=== PATIENT | female | born 1945 | race Caucasian/White ===

== ENCOUNTER 2018-02-25 05:45 | Day surgery (SDC) | payer MEDICARE, OTHER, SELFPAY ==
[2018-02-25] VITALS (13 sets, daily range): BP systolic 84–149; BP diastolic 49–84; PULSE 50–75; RESP 16–18; TEMP 36.2–37; O2SAT 94–98
--- NOTE | 2018-02-25 06:07 | PCM.HP.STD ---
Problem List (1) Screening for intestinal cancer Status: Acute History of Present Illness Date of Admission: 02/25/18 The patient is a 72 year old F who presents for screening colonoscopy. She happens to bring the light though that she has been having some lower abdominal pain particularly post defecation. No fever or chills or sweats. No bright red blood per rectum or melena. She states that she has no personal history of colon polyps or colon cancer. In the discussion however it became evident that she does have a brother who had a history of colon cancer. Her most recent colonoscopy was 10-1/2 years ago. She has not had any unexpected weight loss. She denies any recent hospitalizations or acute medical illnesses. Past Medical History Allergies celecoxib [From Celebrex] Allergy (Verified 02/22/18 10:51) Rash Home Medications: Ambulatory Orders Medication Instructions Recorded Aspirin E.C. [Ecotrin] 81 mg PO DAILY@0800 02/22/18 Cholecalciferol (Vitamin D3) 5,000 unit PO DAILY 02/22/18 [Vitamin D3] L.acidoph,Paracasei, B.lactis 1 each PO DAILY 02/22/18 [Probiotic] Metoprolol Tartrate [Lopressor 25 mg PO BID 02/22/18 (Beta Rupinder)] Multivit with Calcium,Iron,Min 1 each PO DAILY 02/22/18 [Multiple Vitamins For Women] Simvastatin [Zocor] 40 mg PO QHS 02/22/18 Vitamin E 400 unit PO DAILY 02/22/18 Smoking Status: Never smoker Tobacco Use: Non-smoker Review of Systems Constitutional: Denies: Anorexia Eyes: Denies: Blurred vision HEENT: Denies: Difficulty Hearing Cardiovascular: Denies: Chest Pain Respiratory: Denies: Cough Gastrointestinal: Reports: Abdominal Pain Genitourinary: Denies: Dysuria Neurological: Denies: Balance problems Psychiatric: Denies: Anxiety Endocrine: Denies: Change in Body Habitus Hematologic/ Lymphatic: Denies: Adenopathy VTE Information - Inpt Only VTE Present on Admission: No Patient Problems: Active and Suspected Problems Screening for intestinal cancer (Acute) - Physical Exam General: Alert, Oriented x3, Cooperative, No apparent distress HEENT: Atraumatic Oral: Moist Mucosa Neck: Supple, No JVD Lungs: Clear to auscultation Cardiovascular: Regular rate, Regular Rhythm Abdomen: Bowel Sounds Present, Soft, Non Tender Extremities: No clubbing Skin: No rashes Musculoskeletal: No Tenderness to Palpation of Joints or Extremities Lymphatic: No Cervical, Supraclavicular, or Inguinal Adenopathy Neurological: Cranial nerves II-XII grossly intact Psych/Mental Status: Normal Affect Assessment/Plan All Active Problems Screening for intestinal cancer (Acute) I am recommending the patient a colonoscopy with possible biopsy or polypectomy is indicated. She is aware of the technique, benefits, risks and alternatives. She does present via our open access program today. I have educated her that even if the screening colonoscopy is unremarkable that based upon her family history she should be having screening examinations every 5 years. She has had an opportunity to ask and have questions answered. We will proceed at her discretion. Primary care physician is Dr. Mansi Bradshaw M.D., F.A.C.S.
--- NOTE | 2018-02-25 06:53 | OP.ENDO_ITS ---
Patient Name: Marti Osorio Procedure Date: 02/25/2018 6:25 AM Date of : 1945 Age: 72 Procedure: Colonoscopy Indications: Screening for colorectal malignant neoplasm Providers: Abraham Bradshaw MD Medicines: Midazolam 3 mg IV, Meperidine 100 mg IV Patient Profile: Last Colonoscopy: 10 years ago. Complications: No immediate complications. Procedure: Pre-Anesthesia Assessment: - Prior to the procedure, a History and Physical was performed, and patient medications and allergies were reviewed. The patient's tolerance of previous anesthesia was also reviewed. The risks and benefits of the procedure and the sedation options and risks were discussed with the patient. All questions were answered, and informed consent was obtained. Prior Anticoagulants: The patient has taken aspirin, last dose was day of procedure. ASA Grade Assessment: II - A patient with mild systemic disease. After reviewing the risks and benefits, the patient was deemed in satisfactory condition to undergo the procedure. After I obtained informed consent, the scope was passed under direct vision. Throughout the procedure, the patient's blood pressure, pulse, and oxygen saturations were monitored continuously. The pediatric colonoscope was introduced through the anus and advanced to the cecum, identified by appendiceal orifice and ileocecal valve. The colonoscopy was performed without difficulty. The patient tolerated the procedure well. The quality of the bowel preparation was excellent. Moderate Sedation: Moderate (conscious) sedation was personally administered by the endoscopist. The following parameters were monitored: oxygen saturation, heart rate, blood pressure, and response to care. Total physician intraservice time was 15 minutes. Scope In: 6:31:48 AM Scope Withdrawal Time 0 hours 6 minutes 4 seconds Scope Out: 6:45:59 AM Total Procedure Duration Time 0 hours 14 minutes 11 seconds Findings: Hemorrhoids were found on perianal exam. Multiple diverticula were found in the sigmoid colon and descending colon. The exam was otherwise without abnormality. Impression: - Hemorrhoids found on perianal exam. - Diverticulosis in the sigmoid colon and in the descending colon. - The examination was otherwise normal. - No specimens collected. Recommendation: - Discharge patient to home. - Resume regular diet. - Continue present medications. - Repeat colonoscopy in 5 years for surveillance. Brother with colon cancer. Procedure Code(s): --- Professional --- 69399, Colonoscopy, flexible; diagnostic, including collection of specimen(s) by brushing or washing, when performed (separate procedure) 79349, 59, Moderate sedation services provided by the same physician or other qualified health geriatric care manager performing the diagnostic or therapeutic service that the sedation supports, requiring the presence of an independent trained observer to assist in the monitoring of the patient's level of consciousness and physiological status; initial 15 minutes of intraservice time, patient age 5 years or older Diagnosis Code(s): --- Professional --- Z12.11, Encounter for screening for malignant neoplasm of colon K64.9, Unspecified hemorrhoids K57.30, Diverticulosis of large intestine without perforation or abscess without bleeding CPT copyright 2017 [employer]. All rights reserved. The codes documented in this report are preliminary and upon biodiesel plant manager review may be revised to meet current compliance requirements. Abraham Bradshaw MD 02/25/2018 6:52:47 AM This report has been signed electronically. Number of Addenda: 0 Note Initiated On: 02/25/2018 6:25 AM
== END 2018-02-25 09:20 | disposition home or self-care (01) ==
LOC: EN 05:53 → AC 05:55
PROVIDERS: Family Provider Internal Medicine; PCP Internal Medicine; Visit Provider Surgery
PROC: 0DJD8ZZ Inspection of Lower Intestinal Tract, Via Natural or Artificial Opening Endoscopic (ICD-10-PCS; CPT 45378; principal; 2018-02-25 06:25)
DX: Z12.11 Encounter for screening for malignant neoplasm of colon (principal); K64.9 Unspecified hemorrhoids; K57.30 Diverticulosis of large intestine without perforation or abscess without bleeding; Z80.0 Family history of malignant neoplasm of digestive organs
CPT/HCPCS: G0121; 99152; 99153; J7120

== ENCOUNTER → 2018-10-20 | Outpatient (CLI) | payer MEDICARE, OTHER, SELFPAY ==
--- NOTE | 2018-10-20 11:28 | CT_ITS ---
STUDY: CT BRAIN WITHOUT CONTRAST REASON FOR EXAM: Female, 73 years old. Headaches following a recent fall. RADIATION DOSAGE (If Supplied By Facility): CTDIvol = ( 44.99 ) mGy, DLP = ( 812.98 ) mGycm TECHNIQUE: Transaxial CT imaging of the brain was performed without administration of intravenous contrast material. Individualized dose optimization techniques were used for this CT. COMPARISON: No relevant priors. FINDINGS: Normal soft tissue structures. Normal calvarium. Normal size ventricles and extra-axial spaces for the patient's age. Normal white matter tracts of the cerebral hemispheres. Normal basal ganglia and thalami. Normal brainstem. Normal cerebellum. There is no intracranial hemorrhage. There are no findings of an acute ischemic infarction. Normal visualized paranasal sinuses. CT/Brain/Head without Contrast IMPRESSION: Normal unenhanced CT scan of the brain. Electronically Signed: Charles Zhu, at 12:10 EDT , Service support ,
== END | disposition home or self-care (01) ==
PROVIDERS: Family Provider Internal Medicine; PCP Internal Medicine; Referring Provider Internal Medicine; Visit Provider Internal Medicine
DX: G44.319 Acute post-traumatic headache, not intractable (principal)
CPT/HCPCS: 70450

== ENCOUNTER 2023-03-19 06:22 | Day surgery (SDC) | payer MEDICARE, OTHER, SELFPAY ==
[2023-03-19] VITALS (12 sets, daily range): BP systolic 62–154; BP diastolic 41–118; PULSE 46–73; RESP 16–18; TEMP 36.3–36.6; O2SAT 84–100; BMI 34.3
--- NOTE | 2023-03-19 06:45 | PCM.HP.STD ---
[facility] - General General Date of Service: 03/19/23 Chief Complaint: Screening colonoscopy [facility] Narrative KATHERIN VIRK, is a 77 F who presents via open access today for screening colonoscopy. Her previous endoscopy was February 25, 2018 per myself and some diverticulosis and hemorrhoids were noted. She has a brother had colon cancer. The patient notes however that over the past couple months she has been having problems with intermittent bouts of very low abdominal pain and back pain post defecation. Couple scattered nights she had some sweats. She has not had this evaluated. No current fever or chilling. No bright red blood per rectum or melena. No history of DVT. [facility] Medical History (Updated 03/19/23 @ 06:[address] Abraham Bradshaw MD) Arthritis Cardiology follow-up encounter Cervical radiculopathy Dysplastic skin lesion Family hx of colon cancer Heart murmur History of diverticulitis History of stress test HTN (hypertension) Hypercholesterolemia Injury of head and neck Irritable bowel syndrome with diarrhea Non-smoker Wears glasses Home Medications L.acidoph, paracasei,B. lactis 10 billion cell capsule 1 ea PO DAILY 02/22/18 [History Last Taken Unknown] aspirin 81 mg tablet,delayed release 81 mg PO DAILY@0800 02/22/18 [History Last Taken 02/19/18] cholecalciferol (vitamin D3) 125 mcg (5,000 unit) capsule 5,000 unit PO DAILY 02/22/18 [History Last Taken Unknown] metoprolol tartrate 25 mg tablet 25 mg PO BID 02/22/18 [History Last Taken 03/19/23 04:00] luuwwejlkfft-Pv-jjrc-minerals (Multiple Vitamin, Womens tablet) 1 ea PO DAILY 02/22/18 [History Last Taken Unknown] simvastatin 40 mg tablet 40 mg PO QHS 02/22/18 [History Last Taken Unknown] omega 7-qcf-pzj-fish oil 300 mg-1,000 mg capsule (Fish Oil) 1 cap PO DAILY 01/12/23 [History Last Taken 03/11/23] ascorbic acid (vitamin C) 500 mg tablet,extended release (C Complex) 500 mg PO DAILY 03/16/23 [History Last Taken Unknown] diphenhydramine 25 mg-acetaminophen 500 mg tablet (Acetaminophen PM) 1 tab PO QHS PRN sleep 03/16/23 [History Last Taken Unknown] Allergy/AdvReac Type Severity Reaction Status Date / Time celecoxib [From Celebrex] Allergy Rash Verified 03/19/23 06:41 levocetirizine [From Xyzal] Allergy Off Balance Verified 03/19/23 06:41 Family History (Updated 01/12/23 @ 11:21 by Mahogany Lowry) Father Myocardial infarction Aunt Breast cancer Brother Colon cancer Surgical History (Updated 03/16/23 @ 11:26 by Andria Martin) History of total left knee replacement History of total right knee replacement (TKR) Hx of bilateral cataract extraction Hx of cholecystectomy Hx of colonoscopy Hx of varicose vein ligation and stripping Social History Smoking Status: Never smoker ROS Constitutional Constitutional: Reports systems reviewed and no addt'l complaints, except as documented Cardiovascular Cardiovascular: Denies chest pain Respiratory/Chest Respiratory/Chest: Denies shortness of breath at rest Gastrointestinal Gastrointestinal: Denies change in bowel habits, hematochezia or melena Physical Exam Const alert, oriented x3 and no apparent distress General Appearance: cooperative and comfortable Eyes General Eye: normal appearance of both eyes Neck General: normal visual inspection Chest inspection of chest normal Resp Effort and Inspection: able to speak in complete sentences and symmetric chest movement Auscultation: clear to auscultation bilaterally Cardio regular rate and regular rhythm GI soft to palpation, non-tender and non-distended Extremity no calf tenderness Neuro oriented x3 Psych thought process normal Assessment & Plan Assessment/Plan (1) Encounter for screening for malignant neoplasm of colon: (2) Family hx of colon cancer: PLAN: Plan Family history of colon cancer in her brother. Patient presents via open access today for screening colonoscopy. She does make comment that she has been having some post defecation low abdominal pain and back pain. She has a history very remotely of diverticulitis. She has known diverticulosis on previous examination. I discussed with her screening colonoscopy with possible biopsy or polypectomy if indicated. Careful inspection for acute inflammatory changes will be pursued. As noted the patient did present via open access. If she has ongoing pain issues then she will need to follow-up either with her primary care physician or myself subsequent to this screening. Abraham Bradshaw M.D., F.A.C.S.
[2023-03-19] MEDS: Lactated Ringers 1,000 ML 15 ML IV (06:49)
[2023-03-19] MEDS: Midazolam 5 MG/ML Syringe (07:25)
--- NOTE | 2023-03-19 07:43 | OP.CCLET_ITS ---
03/19/2023 Mansi Hyde [address] [place] [address] Re : Colonoscopy procedure for Marti Osorio Dear Dr. Hyde This procedure was performed on Sunday, March 19, 2023. My impressions and recommendations are as follows: Impressions : - Hemorrhoids found on perianal exam. - Diverticulosis in the sigmoid colon and in the descending colon. - The examination was otherwise normal. - No specimens collected. Recommendations : - Discharge patient to home. - Resume previous diet. - Continue present medications. - Repeat colonoscopy in 5 years for surveillance. My findings are described in the full procedure note, which is enclosed. If I can be of further assistance, please feel free to contact me at Doctor phone number(s): Work: . Sincerely, Abraham Bradshaw MD 03/19/2023 7:42:40 AM This report has been signed electronically.
--- NOTE | 2023-03-19 07:43 | OP.COLON_ITS ---
Patient Name: Marti Osorio Procedure Date: 03/19/2023 7:17 AM Date of : 1945 Age: 77 Procedure: Colonoscopy Indications: Family history of colon cancer in a first-degree relative before age 60 years Providers: Abraham Bradshaw MD Medicines: Midazolam 3 mg IV, Meperidine 100 mg IV Patient Profile: Last Colonoscopy: January 2018. Complications: No immediate complications. Procedure: Pre-Anesthesia Assessment: - Prior to the procedure, a History and Physical was performed, and patient medications and allergies were reviewed. The patient's tolerance of previous anesthesia was also reviewed. The risks and benefits of the procedure and the sedation options and risks were discussed with the patient. All questions were answered, and informed consent was obtained. Prior Anticoagulants: The patient has taken no anticoagulant or antiplatelet agents. ASA Grade Assessment: II - A patient with mild systemic disease. After reviewing the risks and benefits, the patient was deemed in satisfactory condition to undergo the procedure. After I obtained informed consent, the scope was passed under direct vision. Throughout the procedure, the patient's blood pressure, pulse, and oxygen saturations were monitored continuously. The colonoscope was introduced through the anus and advanced to the cecum, identified by appendiceal orifice and ileocecal valve. The colonoscopy was performed without difficulty. The patient tolerated the procedure well. The quality of the bowel preparation was excellent. The ileocecal valve and the appendiceal orifice were photographed. Moderate Sedation: Moderate (conscious) sedation was personally administered by the endoscopist. The following parameters were monitored: oxygen saturation, heart rate, blood pressure, and response to care. Total physician intraservice time was 15 minutes. Scope In: 7:25:39 AM Scope Withdrawal Time 0 hours 6 minutes 33 seconds Scope Out: 7:37:34 AM Total Procedure Duration Time 0 hours 11 minutes 55 seconds Findings: Hemorrhoids were found on perianal exam. Multiple diverticula were found in the sigmoid colon and descending colon. The exam was otherwise without abnormality. Impression: - Hemorrhoids found on perianal exam. - Diverticulosis in the sigmoid colon and in the descending colon. - The examination was otherwise normal. - No specimens collected. Recommendation: - Discharge patient to home. - Resume previous diet. - Continue present medications. - Repeat colonoscopy in 5 years for surveillance. Procedure Code(s): --- Professional --- 48748, Colonoscopy, flexible; diagnostic, including collection of specimen(s) by brushing or washing, when performed (separate procedure) 62171, 59, Moderate sedation services provided by the same physician or other qualified health family member caretaker performing the diagnostic or therapeutic service that the sedation supports, requiring the presence of an independent trained observer to assist in the monitoring of the patient's level of consciousness and physiological status; initial 15 minutes of intraservice time, patient age 5 years or older Diagnosis Code(s): --- Professional --- K64.9, Unspecified hemorrhoids Z80.0, Family history of malignant neoplasm of digestive organs K57.30, Diverticulosis of large intestine without perforation or abscess without bleeding CPT copyright 2021 [employer]. All rights reserved. The codes documented in this report are preliminary and upon brake specialist review may be revised to meet current compliance requirements. Abraham Bradshaw MD 03/19/2023 7:42:40 AM This report has been signed electronically. Number of Addenda: 0 Note Initiated On: 03/19/2023 7:17 AM
== END 2023-03-19 08:57 | disposition home or self-care (01) ==
LOC: EN 06:23 → AC 06:23
PROVIDERS: PCP Internal Medicine; Referring Provider Internal Medicine; Visit Provider Surgery
PROC: 0DJD8ZZ Inspection of Lower Intestinal Tract, Via Natural or Artificial Opening Endoscopic (ICD-10-PCS; CPT 45378; principal; 2023-03-19 07:25)
DX: Z12.11 Encounter for screening for malignant neoplasm of colon (principal); K64.9 Unspecified hemorrhoids; Z80.0 Family history of malignant neoplasm of digestive organs; K57.30 Diverticulosis of large intestine without perforation or abscess without bleeding; E78.00 Pure hypercholesterolemia, unspecified; I10 Essential (primary) hypertension; Z79.82 Long term (current) use of aspirin; Z79.899 Other long term (current) drug therapy
CPT/HCPCS: G0121; 99152; 99153; J7120

== ENCOUNTER → 2023-09-08 | Outpatient (CLI) | payer MEDICARE, OTHER, SELFPAY ==
--- NOTE | 2023-09-08 11:28 | CT_ITS ---
STUDY: CT ABDOMEN AND PELVIS WITH CONTRAST REASON FOR EXAM: Female, 78 years old. RLQ Abdominal pain RADIATION DOSAGE (If Supplied By Facility): CTDIvol = ( 16.28 ) mGy, DLP = ( 1204.75 ) mGycm TECHNIQUE: Transaxial images were obtained from the dome of the diaphragm to the symphysis pubis with oral contrast. Oral and amp; IV Gastrografin and amp; 100mL Isovue-300 was administered. Sagittal and coronal images were reconstructed. Individualized dose optimization techniques were used for this CT. COMPARISON: None. FINDINGS: Minimal increased linear markings at the right lung base suggest some mild atelectasis. Coronary artery calcification. There is decreased attenuation of the liver consistent with steatosis. There are surgical clips in the gallbladder fossa consistent with a prior cholecystectomy. Normal spleen. Normal pancreas. There is a small, circumscribed, smooth, low attenuation left adrenal mass, consistent with an adrenal adenoma. This measures 1.4 cm x 1.1 cm. Normal right adrenal gland. Bilateral parapelvic renal cysts. Normal visualized stomach. Normal small intestine. There are multiple colonic diverticula consistent with diverticulosis. The appendix is visualized and appears normal. There is scattered atherosclerotic calcification of the abdominal aorta, without a demonstrated aneurysm. Normal inferior vena cava. Normal retroperitoneum. Normal urinary bladder. There is a 2.7 cm x 3.1 cm cyst in the left adnexa. Correlation with pelvic sonogram is recommended. Normal abdominal wall. There are diffuse degenerative changes of the visualized lumbar spine. CT/Abdomen/Pelvis WITH Contrast IMPRESSION: Diffuse fatty infiltration of the liver. Status post cholecystectomy. Findings in keeping with a 1.4 cm x 1 cm left adrenal adenoma. 2.7 cm x 3.1 cm cyst in the left adnexa. Electronically Signed: Charles Zhu MD at 14:05 EDT ,
[2023-09-08 13:56] LABS: CREATININE FINGERSTICK < 1.0 mg/dL (0.55-1.02); EGFR FINGERSTICK > 60.0000 mL/min (>60)
== END | disposition home or self-care (01) ==
LOC: CT 11:26
PROVIDERS: PCP Internal Medicine; Referring Provider Internal Medicine; Visit Provider Internal Medicine
DX: R10.31 Right lower quadrant pain (principal)
CPT/HCPCS: 74177; Q9967

== ENCOUNTER → 2023-09-27 | Outpatient (CLI) | payer MEDICARE, OTHER, SELFPAY ==
--- NOTE | 2023-09-27 08:55 | US_ITS ---
STUDY: ULTRASOUND OF THE FEMALE PELVIS - COMPLETE REASON FOR EXAM: Female, [address] scan LMP: Patient is postmenopausal. TECHNIQUE: Transabdominal TECHNICAL QUALITY: Adequate. COMPARISON: Comparison is made with prior CT scan dated September 08, 2023. FINDINGS: The uterus is anteverted and is in a midline position. The uterus measures 7.8 cm x 4.9 cm x 3.2 cm. Normal uterine cervix. The endometrium is slightly thickened and measures 3.3 mm in thickness, and is hyperechoic. There is no demonstrated endometrial mass. There is no demonstrated myometrial mass. I.U.D. - The patient does not have an I.U.D. The right ovary is visualized. The right ovary measures 2.3 cm x 1.6 cm x 1.1 cm. There is no right ovarian cyst or ovarian mass. There is no visualized right adnexal mass or complex lesion. There is normal arterial and normal venous vascularity. The left ovary is visualized. The left ovary measures 4.6 cm x 3 cm x 3.7 cm. There is a 3.7 cm x 2.9 cm by 2.9 cm cyst in the left ovary. There is no visualized left adnexal mass or complex lesion. There is normal arterial and normal venous vascularity. There is no fluid in the cul-de-sac. The pre void volume of the bladder was 250 ml. US/Pelvic (Non ) IMPRESSION: Minimally thickened endometrium measuring 3.3 mm. 3.7 cm x 2.9 cm x 2.9 cm cyst in the left ovary. Electronically Signed: Charles Zhu MD at 14:05 EDT ,
== END | disposition home or self-care (01) ==
LOC: US 08:54
PROVIDERS: PCP Internal Medicine; Referring Provider Internal Medicine; Visit Provider Internal Medicine
DX: R93.89 Abnormal findings on diagnostic imaging of other specified body structures (principal)
CPT/HCPCS: 76856

== ENCOUNTER 2023-10-07 20:03 | Emergency (ER) | payer MEDICARE, OTHER, SELFPAY ==
[2023-10-07 20:05] VITALS: BP 212/94; PULSE 84; RESP 16; TEMP 36.9; O2SAT 98; BMI 35.5
--- NOTE | 2023-10-07 20:37 | CT_ITS ---
INDICATION: headache EXAMINATION: CT BRAIN - CT Head or Brain W/O Contrast Injection TECHNIQUE: Multiple axial images were obtained of the head without intravenous contrast. A radiation dose optimization technique was used for this scan. IV Contrast dosage and agent: None. Radiation Dose (provided by facility) CTDIvol (47.06 ) mGy, DLP ( 890.33) mGy-cm COMPARISON: No relevant prior examinations for comparison FINDINGS: HEMISPHERES: 1. The cerebral parenchyma, ventricular system, subarachnoid spaces have normal configuration and density. There is a normal gyral pattern. There is normal fisher/white differentiation. No midline shift.. 2. Mild chronic microvascular deep white matter changes. There are dilated perivascular spaces in the RIGHT sublenticular region. 3. No intraparenchymal mass, hemorrhage, or acute territorial infarct. CEREBELLUM - BRAINSTEM: The cerebellum, brainstem, basilar and suprasellar cisterns have normal appearance. No Chiari malformation. PITUITARY: Infundibulum and pituitary have normal configuration. Midline structures appear normal. CSF SPACES: Appropriate for age. No hydrocephalus. Basal cisterns are patent. VESSELS: 1. No significant vascular calcifications in the cavernous carotid vessels. 2. No hyperdense vascular signs noted.. ORBITS AND PARANASAL SINUSES: 1. Normal appearance of the bony orbits. Normal appearance of the globes and retrobulbar soft tissues.. 2. Paranasal sinuses are clear. BONY ELEMENTS: Bony elements of the cranial vault, facial skeleton and skull base have normal appearance. SCALP AND SOFT TISSUES: Normal appearance of the soft tissues of the scalp and the visualized face OTHER: None ASPECTS Score for Acute Strokes: 10 CT/Brain/Head without Contrast IMPRESSION: 1. Mild chronic microvascular deep white matter changes. 2. No intracranial mass, hemorrhage or acute territorial infarct. 3. No radiographically significant sinus disease.. Electronically Signed: Dionte Farrell MD at 22:09 EDT ,
--- NOTE | 2023-10-07 20:42 | CT_ITS ---
STUDY: CTA CHEST REASON FOR EXAM: Female, 78 years old. chest pain, hypertension RADIATION DOSAGE (If Supplied By Facility): CTDIvol = ( 11.37 ) mGy, DLP = ( 404.79 ) mGycm TECHNIQUE: The examination was performed with the intravenous administration of IV 100mL Isovue-370. Post-processing of the angiographic images was performed, with multiplanar reformation and 3D reconstruction. Individualized dose optimization techniques were used for this CT. COMPARISON: None. FINDINGS: Tubes and lines: 1. No life-support noted. CTA: PULMONARY ARTERIES: There is normal configuration and contrast opacification of pulmonary outflow tract, main pulmonary arteries, segmental and intersegmental pulmonary arteries bilaterally without evidence of intraluminal filling defects. AORTIC ARCH: The aortic arch and descending aorta have normal configuration. No evidence of dissection or aneurysmal dilatation. HEART: Cardiac contour is large. No evidence pericardial effusion. Only mild scattered coronary vascular calcifications noted. CT CHEST: LUNGS: [Diffuse interstitial prominence at the lung bases, superimposed hazy groundglass infiltrate bilaterally greater on the RIGHT than LEFT, no consolidation or effusion.. No mass. No consolidation. PLEURAL SPACES: Unremarkable, no effusion or pneumothorax.. MEDIASTINUM AND LYMPH NODES: Unremarkable. No significant adenopathy. BONES: No acute bony changes. Diffuse marginal osteophyte formation throughout the thoracic spine. ABDOMEN: Within normal limits. Other: None IMPRESSIONS: 1. No CTA evidence of pulmonary embolism. 2. No CTA evidence of aortic aneurysm or dissection 3. Cardiomegaly is noted. No pericardial effusion. Mild scattered coronary vascular calcifications are present. 4. Diffuse interstitial prominence at the lung bases with superimposed hazy groundglass infiltrate particularly at the RIGHT lung base. Electronically Signed: Dionte Farrell MD at 22:13 EDT , CT/CTA Chest W/WO Contrast IMPRESSION: undefined
[2023-10-07 20:55] VITALS: BP 162/84; PULSE 88; RESP 16; O2SAT 98
[2023-10-07 20:57] LABS: Bacteria 0 SEEN /hpf (None Seen); Mucous, Urine 0 SEEN /hpf (<or=2+); Red Blood Cells-Urine 0 SEEN /hpf (0-5)
[2023-10-07 20:59] LABS: Absolute Neutrophil Count 3.2 X10^3/uL (2.0-7.7); Basophil# 0.02 X10^3/uL; Basophil% 0.3 % (0-1); Eosinophil# 0.09 X10^3/uL; Eosinophils% 1.4 % (0-5); Hematocrit 45.9 % (37-47); Hemoglobin 14.9 g/dL (12.0-15.0); Lymphocyte % 38.5 % (19-41); Mean Corp Hgb Conc 32.5 g/dL (32-36); Mean Corpuscular Volume 89.3 fL (81-99); Mean Platelet Vol. 9.1 fl (6.2-12.0); Monocyte# 0.56 X10^3/uL; NRBC Flagged by Analyzer 0 % (0-5); Neutrophil # 3.16 X10^3/uL (2.7-7.7); Neutrophil % 50.6 % (47-70); Platelet Count 223 K/mm3 (150-450); RBC Distribution Width CV 13.1 % (11.6-14.6); RBC Distribution Width SD 42.8 fl (35.1-43.9); Red Blood Count 5.14 M/mm3 (4.2-5.4); White Blood Count 6.2 K/mm3 (4.4-11.0)
[2023-10-07 20:59] LABS: Color, Urine Yellow (Yellow); Glucose, Dipstick Normal (Normal); Ketone-Dipstick 15 mg/dl (Negative); Leukocyte Esterase-Dipstick Negative /ul (Negative); Nitrite-Dipstick Negative (Negative); Occult Blood-Urine 10 /ul (Negative); Protein-Dipstick 15 mg/dl (Negative); Urine Bilirubin Dipstick Negative (Negative); Urine Clarity Clear (Clear); Urine Urobilinogen Normal (Normal)
--- NOTE | 2023-10-07 21:00 | EDS_ITS ---
HPI <BIJAL Nash - Last Filed: 10/07/23 22:01> History of Present Illness Chief Complaint: Hypertension Narrative Narrative: Patient presenting today due to elevated blood pressure that started this morning. She reports that she came here to the hospital to have an echocardiogram performed due to her PCP finding a systolic murmur, her systolic blood pressure was high this morning around 200 systolic. She has intermittently checked her blood pressure today and it has remained high, it was around 224 systolic this evening. She reports that around 4 PM she developed sharp pain in her left arm and pain under her left breast into the left lateral rib cage. This morning she developed a slight headache that has gradually worsened throughout the day. She reports that she does take 25 mg metoprolol tartrate twice daily, she did not take her evening dose yet today. She denies any significant cardiac history. She reports that her blood pressure is normally in good control. She denies any history of blood clots/recent surgery/procedures/travel/immobilization. [facility] [place] <BIJAL Nash - Last Filed: 10/07/23 22:01> [facility] [place] Medical History Arthritis Cardiology follow-up encounter Cervical radiculopathy Dysplastic skin lesion Family hx of colon cancer Heart murmur History of diverticulitis History of stress test HTN (hypertension) Hypercholesterolemia Injury of head and neck Irritable bowel syndrome with diarrhea Non-smoker Wears glasses Home Medications L.acidoph, paracasei,B. lactis 10 billion cell capsule 1 ea PO DAILY 02/22/18 [History Last Taken Unknown] aspirin 81 mg tablet,delayed release 81 mg PO DAILY@0800 02/22/18 [History Last Taken 02/19/18] cholecalciferol (vitamin D3) 125 mcg (5,000 unit) capsule 5,000 unit PO DAILY 02/22/18 [History Last Taken Unknown] metoprolol tartrate 25 mg tablet 25 mg PO BID 02/22/18 [History Last Taken 03/19/23 04:00] kgabkkzpfesn-Rz-bcan-minerals (Multiple Vitamin, Womens tablet) 1 ea PO DAILY 02/22/18 [History Last Taken Unknown] simvastatin 40 mg tablet 40 mg PO QHS 02/22/18 [History Last Taken Unknown] omega 8-kra-jia-fish oil 300 mg-1,000 mg capsule (Fish Oil) 1 cap PO DAILY 01/12/23 [History Last Taken 03/11/23] ascorbic acid (vitamin C) 500 mg tablet,extended release (C Complex) 500 mg PO DAILY 03/16/23 [History Last Taken Unknown] diphenhydramine 25 mg-acetaminophen 500 mg tablet (Acetaminophen PM) 1 tab PO QHS PRN sleep 03/16/23 [History Last Taken Unknown] losartan 25 mg tablet 25 mg PO DAILY #30 tabs 10/07/23 [Rx Last Taken Unknown] Allergy/AdvReac Type Severity Reaction Status Date / Time celecoxib [From Celebrex] Allergy Rash Verified 10/07/23 20:07 levocetirizine [From Xyzal] Allergy Off Balance Verified 10/07/23 20:07 Family History Father Myocardial infarction Aunt Breast cancer Brother Colon cancer Surgical History History of total left knee replacement History of total right knee replacement (TKR) Hx of bilateral cataract extraction Hx of cholecystectomy Hx of colonoscopy Hx of varicose vein ligation and stripping Social History Smoking Status: Never smoker ROS <BIJAL Nash - Last Filed: 10/07/23 22:01> ROS ED Constitutional Constitutional ED: Denies chills or fever(s) Eyes Eyes: Denies change in vision Cardiovascular Cardiovascular: Reports chest pain; Denies palpitations Respiratory/Chest Respiratory/Chest: Denies cough or dyspnea Gastrointestinal Gastrointestinal: Denies abdominal pain, nausea or vomiting Genitourinary Genitourinary ED: Denies dysuria, hematuria or urinary frequency Musculoskeletal Musculoskeletal: Denies arthralgias or myalgias Integumentary Denies rash Neurologic Neurologic: Reports headache(s); Denies paresthesias or weakness EXAM <BIJAL Nash - Last Filed: 10/07/23 22:01> Physical Exam Const Vital Signs: 10/07/23 20:05 10/07/23 20:29 10/07/23 20:55 Temperature 98.4 F Temperature Source Temporal Pulse Rate 84 88 Respiratory Rate 16 16 Respiratory Effort Normal Respiratory Pattern Normal Blood Pressure 212/94 H 162/84 H Blood Pressure Mean 133 110 Pulse Ox 98 98 Oxygen Delivery Method Room Air Room Air 10/07/23 21:05 10/07/23 22:00 10/07/23 22:58 Temperature 98.6 F Temperature Source Pulse Rate 69 69 58 L Respiratory Rate 17 17 17 Respiratory Effort Respiratory Pattern Blood Pressure 190/79 H 199/81 H Blood Pressure Mean 116 120 Pulse Ox 98 98 98 Oxygen Delivery Method Room Air Room Air Positive well nourished, well developed and no apparent distress General Appearance ED: well developed HEENT Reports normocephalic and head/scalp atraumatic Mouth ED: Yes moist mucous membranes normal Eyes PERRL and EOMs intact bilaterally Neck full ROM and supple Chest Wall inspection of chest normal Resp normal respiratory effort and clear to auscultation bilaterally Cardio regular rate and regular rhythm GI soft to palpation, non-tender, non-distended and no masses Back/Spine normal ROM and normal to inspection Extremity normal to inspection and full ROM Neuro oriented x3, CN's II-XII intact bilaterally, moves all extremities, no focal motor deficits and no sensory deficits noted Sensorium / Orientation: awake and alert Psych mental status grossly normal and thought process normal Skin no rashes or lesions noted and no wounds <Dr. Erik De La Rosa DO - Last Filed: 10/07/23 23:39> Physical Exam Const Vital Signs: 10/07/23 20:05 10/07/23 20:29 10/07/23 20:55 Temperature 98.4 F Temperature Source Temporal Pulse Rate 84 88 Respiratory Rate 16 16 Respiratory Effort Normal Respiratory Pattern Normal Blood Pressure 212/94 H 162/84 H Blood Pressure Mean 133 110 Pulse Ox 98 98 Oxygen Delivery Method Room Air Room Air 10/07/23 21:05 10/07/23 22:00 10/07/23 22:58 Temperature 98.6 F Temperature Source Pulse Rate 69 69 58 L Respiratory Rate 17 17 17 Respiratory Effort Respiratory Pattern Blood Pressure 190/79 H 199/81 H Blood Pressure Mean 116 120 Pulse Ox 98 98 98 Oxygen Delivery Method Room Air Room Air MDM <BIJAL Nash - Last Filed: 10/07/23 22:01> [facility] Narrative Medical decision making narrative: Patient presenting due to elevated blood pressure that she has had since this morning. It was checked before she had her echocardiogram and was around 200 systolic which is unusual for her. It has remained elevated throughout today. Given her left-sided chest discomfort, cardiac labs will be obtained. She will be given her evening metoprolol dose. CTA of the chest will be performed to rule out aortic dissection. Head CT will be obtained given her headache. CBC and BMP are unremarkable, UA shows slight elevation in proteinuria, initial troponin WNL, repeat pending. CTA and CT is pending. Lab Data Attestation: I reviewed the patient's lab results. Labs: Laboratory Results - last 24 hr 10/07/23 10/07/23 20:25 20:48 WBC 6.2 RBC 5.14 Hgb 14.9 Hct 45.9 MCV 89.3 MCH 29.0 MCHC 32.5 RDW Std Deviation 42.8 RDW Coeff of Cara 13.1 Plt Count 223 MPV 9.1 Immature Gran % (Auto) 0.200 Neut % (Auto) 50.6 Lymph % (Auto) 38.5 [place] % (Auto) 9.0 Eos % (Auto) 1.4 Baso % (Auto) 0.3 Absolute Neuts (auto) 3.2 Absolute Lymphs (auto) 2.40 Nucleated RBC % 0 Sodium 141 Potassium 3.8 Chloride 108 H Carbon Dioxide 27.0 Anion Gap 6 BUN 15 Creatinine 1.00 Estim Creat Clear Calc 51.24 Est GFR (MDRD) Af Amer 69 Est GFR (MDRD) Non-Af 57 L BUN/Creatinine Ratio 15.0 Glucose 100 Calcium 10.0 Troponin I High Sens 9 Urine Color Yellow Urine Clarity Clear Urine pH 5.0 Ur Specific Hay 1.010 Urine Protein 15 H Urine Glucose (UA) Normal Urine Ketones 15 H Urine Occult Blood 10 H Urine Nitrite Negative Urine Bilirubin Negative Urine Urobilinogen Normal Ur Leukocyte Esterase Negative Urine RBC 0 SEEN Urine WBC 0-5 SEEN Ur Squamous Epith Cells 0-5 SEEN Urine Bacteria 0 SEEN Urine Mucus 0 SEEN Radiography Diagnostic Testing: Clinical Impression(s) from Imaging Studies Brain CT 10/07/23 20:37 IMPRESSION: 1. Mild chronic microvascular deep white matter changes. 2. No intracranial mass, hemorrhage or acute territorial infarct. 3. No radiographically significant sinus disease.. Electronically Signed: Dionte Farrell MD at 22:09 EDT , Chest CTA 10/07/23 20:42 IMPRESSION: undefined EKG Initial EKG: Comments: 60 bpm, normal sinus rhythm, no ST elevation T wave inversions in lead III <Dr. Erik De La Rosa, DO - Last Filed: 10/07/23 23:39> MDM MDM Narrative Medical decision making narrative: Patient presenting due to elevated blood pressure that she has had since this morning. It was checked before she had her echocardiogram and was around 200 systolic which is unusual for her. It has remained elevated throughout today. Given her left-sided chest discomfort, cardiac labs will be obtained. She will be given her evening metoprolol dose. CTA of the chest will be performed to rule out aortic dissection. Head CT will be obtained given her headache. CBC and BMP are unremarkable, UA shows slight elevation in proteinuria, initial troponin WNL, repeat pending. CTA and CT is pending. Interventions / MDM: Differential diagnosis: Sellar hypertension, headache, chest pain Diagnosis considered but do not suspect: Hypertensive emergency, workup negative. Intracranial hemorrhage CT negative. ACS negative EKG and troponin. My EKG interpretation: Sinus rhythm no ST changes. Imaging independently reviewed and interpreted by myself: CT brain: No acute process. CT angiogram chest: No dissection or PE. Groundglass changes right lower lobe. 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 I perform my own [id number] evaluation. I agree with the plan of work-up. Echocardiogram ordered from PCP a month ago for increasing murmur. History of hypertension on metoprolol twice daily. She has been compliant. Today during testing blood pressure 216 echocardiogram performed she went home monitor pressure up to 227. Developed slight headache and slight chest burning left arm burning. No recent cough. Exam alert oriented nontoxic no acute distress no meningismus. 2 out of 6 systolic murmur heard. Symmetric pulses upper extremities bilaterally. Patient blood pressure 12/94 on arrival. This was monitored give her night dose of metoprolol. Cardiac workup initiated and negative. Rule out hypertensive emergency with CT head and CT angiogram of the chest also negative. There is reported groundglass changes right lower lobe per radiology, she has no cough or fever symptoms for concerns for infection. Blood pressure systolic 190 on reevaluation. Discussed with on-call physician Dr. Cisneros, will add losartan low-dose at 25 mg daily. Should continue metoprolol. Should keep a log of her blood pressure in the morning and at night and follow- up in the office next week. Discussed return precautions with patient and spouse. All questions were answered. Re-evaluation: stable Disposition discussed with patient/family/significant other: Patient and spouse Case discussed with consulting clinician: PCP This note was generated with [employer] dictation software. It may contain incorrect words, spelling, and punctuation that were not noted in checking the note before signing. Lab Data Labs: Laboratory Results - last 24 hr 10/07/23 10/07/23 20:25 20:48 WBC 6.2 RBC 5.14 Hgb 14.9 Hct 45.9 MCV 89.3 MCH 29.0 MCHC 32.5 RDW Std Deviation 42.8 RDW Coeff of Cara 13.1 Plt Count 223 MPV 9.1 Immature Gran % (Auto) 0.200 Neut % (Auto) 50.6 Lymph % (Auto) 38.5 [place] % (Auto) 9.0 Eos % (Auto) 1.4 Baso % (Auto) 0.3 Absolute Neuts (auto) 3.2 Absolute Lymphs (auto) 2.40 Nucleated RBC % 0 Sodium 141 Potassium 3.8 Chloride 108 H Carbon Dioxide 27.0 Anion Gap 6 BUN 15 Creatinine 1.00 Estim Creat Clear Calc 51.24 Est GFR (MDRD) Af Amer 69 Est GFR (MDRD) Non-Af 57 L BUN/Creatinine Ratio 15.0 Glucose 100 Calcium 10.0 Troponin I High Sens 9 Urine Color Yellow Urine Clarity Clear Urine pH 5.0 Ur Specific Hay 1.010 Urine Protein 15 H Urine Glucose (UA) Normal Urine Ketones 15 H Urine Occult Blood 10 H Urine Nitrite Negative Urine Bilirubin Negative Urine Urobilinogen Normal Ur Leukocyte Esterase Negative Urine RBC 0 SEEN Urine WBC 0-5 SEEN Ur Squamous Epith Cells 0-5 SEEN Urine Bacteria 0 SEEN Urine Mucus 0 SEEN Radiography Diagnostic Testing: Clinical Impression(s) from Imaging Studies Brain CT 10/07/23 20:37 IMPRESSION: 1. Mild chronic microvascular deep white matter changes. 2. No intracranial mass, hemorrhage or acute territorial infarct. 3. No radiographically significant sinus disease.. Electronically Signed: Dionte Farrell MD at 22:09 EDT , Chest CTA 10/07/23 20:42 IMPRESSION: undefined Discharge Plan Triage Chief Complaint: Hypertension ED Midlevel Provider: Oma Velazquez ED Provider: Erik De La Rosa Dx/Rx/DC Orders Clinical Impression: Accelerated hypertension, Headache, Chest pain Instructions: Controlling High Blood Pressure, ED High Blood Pressure Hypertension Prescriptions: New losartan 25 mg tablet 25 mg PO DAILY Qty: 30 0RF No Action omega 3-voy-hvb-fish oil [Fish Oil] 300-1,000 mg capsule 1 cap PO DAILY aspirin 81 MG tablet 81 mg PO DAILY@0800 simvastatin 40 MG tablet 40 mg PO QHS cholecalciferol (vitamin D3) 5,000 UNIT capsule 5,000 unit PO DAILY Multiple Vitamin, Womens 1 EACH tablet 1 ea PO DAILY metoprolol tartrate 25 MG tablet 25 mg PO BID L.acidoph, paracasei,B. lactis 1 EACH capsule 1 ea PO DAILY diphenhydramine-acetaminophen [Acetaminophen PM] 25-500 mg tablet 1 tab PO QHS PRN (Reason: sleep) ascorbic acid (vitamin C) [C Complex] 500 mg tablet extended release 500 mg PO DAILY Primary Care Provider: Mansi Hyde Referrals: Mansi Hyde DO [Primary Care Provider] - 5-7 Days Activity Restrictions/Additional Instructions: Blood pressures elevated 212/[address] brain negative. CT angiogram chest negative. Cardiac workup negative. Labs are all stable. Discussed with Dr. Cisneros, will start losartan. Keep a log of your blood pressure first in the morning and at night before bed. Follow-up in the office next week. Call for the appointment for blood pressure reevaluation. Disposition Disposition: Home, Self Care Discharge Date/Time: 10/07/23 22:59
[2023-10-07 21:05] VITALS: PULSE 69; RESP 17; O2SAT 98
[2023-10-07 21:12] LABS: Squamous Epithelial Cells - UA 0-5 SEEN /hpf (5-10); White Blood Cells 0-5 SEEN /hpf (0-5)
[2023-10-07 21:23] LABS: Anion Gap 6 (5-15); BUN 15 mg/dL (7-18); Chloride 108 mmol/L (98-107); EST Glomerular Filtration Rate 57 mL/min (>60); Est Glom Filt Rate - Afr Amer 69 mL/min (>60); Estimated Creatinine Clearance 51.24 ml/min; Glucose 100 mg/dL (74-106); Potassium 3.8 mmol/L (3.5-5.1); Sodium Level 141 mmol/L (136-145); Troponin-I HS 9 pg/mL (3.0-54.0)
[2023-10-07 22:00] VITALS: BP 190/79; PULSE 69; RESP 17; O2SAT 98
[2023-10-07] MEDS: Metoprolol Tartrate 25 MG Tablet PO (22:01)
[2023-10-07] MEDS: Losartan Potassium 25 MG Tablet PO (22:57)
[2023-10-07 22:58] VITALS: BP 199/81; PULSE 58; RESP 17; TEMP 37; O2SAT 98
== END 2023-10-07 22:59 | disposition home or self-care (01) ==
PROVIDERS: Physician Assistant; Emergency Provider Emergency Medicine; PCP Internal Medicine; Visit Provider Emergency Medicine
DX: I10 Essential (primary) hypertension (principal); R07.9 Chest pain, unspecified; R51.9 Headache, unspecified; J98.4 Other disorders of lung; E78.00 Pure hypercholesterolemia, unspecified; Z79.899 Other long term (current) drug therapy
CPT/HCPCS: 70450; 71275; 80048; 81001; 84484; 85025; 93005; 99284; Q9967; A4216

== ENCOUNTER → 2023-10-07 | Outpatient (CLI) | payer MEDICARE, OTHER, SELFPAY ==
--- NOTE | 2023-10-07 08:59 | ECHOD_ITS ---
Reason For Study: Aortic Valve Disorder Procedure This was a 2D Doppler, Color Flow transthoracic echocardiogram. Exam performed in department. Left Ventricle Normal size and thickness. The left ventricular ejection fraction is 65 %. Normal diastology for age. Right Ventricle Normal right ventricle. Atria The left atrium is mildly enlarged. Normal right atrium. Mitral Valve Mild mitral annular calcification. Tricuspid Valve Trivial tricuspid valve insufficiency. Normal pulmonary artery pressure. Aortic Valve Trisinus/trileaflet aortic valve. Mild diffuse aortic valve thickening. Mild aortic stenosis. Pulmonic Valve The pulmonic valve is not well visualized. Great Vessels Normal sized aortic root. Pericardium/Pleural No pericardial effusion. MMode/2D Measurements & Calculations LVIDd: 5.1 cm IVSd: 0.86 cm LVOT diam: 2.1 cm LVIDs: 2.9 cm LVPWd: 0.75 cm LVOT area: 3.3 cm2 RVDd: 3.3 cm FS: 43.2 % Ao root diam: 3.1 cm LAV(MOD-bp): 48.3 ml LVAd ap4: 25.2 cm2 LA dimension: 3.5 cm LAV(MOD-bp) Indexed: 25.0 ml/m2 LVLd ap4: 7.0 cm LAV(MOD-sp2): 47.5 ml EDV(MOD-sp4): 77.5 ml LAV(MOD-sp4): 47.6 ml EDV(sp4-el): 76.4 ml LVAs ap4: 13.5 cm2 LVLs ap4: 6.0 cm ESV(MOD-sp4): 27.2 ml ESV(sp4-el): 26.1 ml EF(MOD-sp4): 64.9 % EF(sp4-el): 65.8 % SV(MOD-sp4): 50.3 ml SV(sp4-el): 50.3 ml LA A4 area: 17.7 cm2 RA A4 area: 13.6 cm2 TAPSE: 2.2 cm Time Measurements MV dec time: 0.21 sec Doppler Measurements & Calculations MV E max jayant: 87.9 cm/sec Lat Peak E' Jayant: 7.9 cm/sec Med Peak E' Jayant: 6.3 cm/sec MV A max jayant: 111.4 cm/sec E/E' lat: 11.2 E/E' med: 14.0 MV E/A: 0.79 MV V2 max: 132.6 cm/sec MV P1/2t max jayant: 120.4 cm/sec Ao V2 max: 245.6 cm/sec MV max P.0 mmHg MV P1/2t: 80.2 msec Ao max P.1 mmHg MV V2 mean: 72.0 cm/sec Ao V2 mean: 167.8 cm/sec MV mean P.5 mmHg MV dec slope: 439.8 cm/sec2 Ao mean P.9 mmHg MV V2 VTI: 32.3 cm MVA(P1/2t): 2.7 cm2 Ao V2 VTI: 58.6 cm AV (velocity ratio): 0.42 MVA(VTI): 2.5 cm2 MISAEL(I,D): 1.4 cm2 MISAEL(V,D): 1.3 cm2 LV V1 max: 99.9 cm/sec SV(LVOT): 81.0 ml PA V2 max: 91.5 cm/sec LV V1 max P.0 mmHg LV V1 mean P.0 mmHg LV V1 mean: 65.6 cm/sec LV V1 VTI: 24.5 cm TR max jayant: 240.4 cm/sec TR max P.1 mmHg ECHO/Echo Complete Interpretation Summary The left ventricular ejection fraction is 65 %. The left atrium is mildly enlarged. Mild aortic stenosis. Ordering Physician: Mansi Hyde Referring Physician: Mansi Hyde Performed By: Rodríguez Delgado RCS
== END | disposition home or self-care (01) ==
LOC: CVS 08:58
PROVIDERS: PCP Internal Medicine; Referring Provider Internal Medicine; Visit Provider Internal Medicine
DX: I35.8 Other nonrheumatic aortic valve disorders (principal)
CPT/HCPCS: 93306

== ENCOUNTER → 2023-10-21 | Outpatient (CLI) | payer MEDICARE, OTHER, SELFPAY ==
--- NOTE | 2023-10-21 07:45 | RDU_ITS ---
Reason For Study: HTN Right Renal Artery Left Renal Artery Right renal artery ostium Left renal artery ostium 117.6/23.3 121.4/29.2 RSV/EDV. PSV/EDV. Right renal artery proximal Left renal artery proximal PSV/EDV 121.4/38.0 PSV/EDV. 177.0/26.7 . Right renal artery mid 136.7/29.2 Left renal artery mid 165.5/41.2 PSV/EDV. PSV/EDV . Right renal artery distal Left renal artery distal 118.9/36.0 125.8/38.0 PSV/EDV. PSV/EDV. Right RAR 2.6. Left RAR 3.3. Right Renal Parenchyma Left Renal Parenchyma Upper Pole Medula 20.1/4.7 PSV/EDV. Left upper pole medulla 52.8/13.4 Right upper pole medulla EDR .23 . PSV/EDV . Right upper pole medulla R.I. .77 . Left upper pole medulla EDR .25 . Upper [place] Cortx 22.9/5.3 PSV/EDV. Left upper pole medulla R.I. .75 . Right upper pole cortex EDR .23 . UP Cortex 20.0/6.8 PSV/EDV. Right upper pole cortex R.I. .77 . Left upper pole cortex EDR .34 . Right lower Pole medulla 9.1/4.2 Left upper pole cortex R.I. .66 . PSV/EDV . Left lower Pole medulla 24.3/7.9 Right lower pole medulla EDR .46 . PSV/EDV . Right lower pole medulla R.I. .54 . Left lower pole medulla EDR .32 . Lower Pole Cortex 15.2/5.3 PSV/EDV. Left lower pole medulla R.I. .68 . Right lower pole cortex EDR .35 . Lower Pole Cortx 24.3/6.8 PSV/EDV. Right lower pole cortex R.I. .65 . Left lower pole cortex EDR .28 . Right Renal Hilar Left lower pole cortex R.I. .72 . Right Hilar avg 46.2/9.7 PSV/EDV. Left Renal Hilar Right hilar acceleration time 40 LT Hilar avg 58.3/14.5 PSV/EDV . m/sec. Left hilar acceleration time 40 Right Renal Dimensions m/sec. Right kidney size 10.7 cm . Left Renal Dimensions Right cortical dimension 1.14 cm . Left kidney size 10.2 cm . Left cortical dimension 1.78 cm . Aorta Proximal abdominal aorta 1.27 x 1.32 cm . Proximal abdominal aorta peak systolic velocity is 53.5 cm/sec . Distal abdominal aorta 1.18 x 1.13 cm . Distal abdominal aorta peak systolic velocity is 40.2 cm/sec . Normal renal veins bilat. VL/Renal Artery Duplex Ultrasound Interpretation Summary Right renal artery patent with normal velocities and no evidence of stenosis. Left renal artery patent with normal velocities and no evidence of stenosis. Right renal vein patent. Left renal vein patent. Right kidney normal in size. Left kidney normal in size. Ordering Physician: Mansi Hyde Referring Physician: Mansi Hyde Performed By: Jayjay Moya RVT
== END | disposition home or self-care (01) ==
LOC: CVS 07:44
PROVIDERS: PCP Internal Medicine; Referring Provider Internal Medicine; Visit Provider Internal Medicine
DX: I10 Essential (primary) hypertension (principal)
CPT/HCPCS: 93975

== ENCOUNTER → 2024-05-03 | Outpatient (CLI) | payer MEDICARE, OTHER, SELFPAY ==
--- NOTE | 2024-05-03 12:46 | CT_ITS ---
STUDY: CT ABDOMEN WITH CONTRAST REASON FOR EXAM: Female, 78 years old. Adrenal Adenoma, left RADIATION DOSAGE (If Supplied By Facility): CTDIvol = ( 15.99 ) mGy, DLP = ( 810.21 ) mGycm TECHNIQUE: Transaxial images were obtained post I.V. administration of IV 100mL Isovue-370, and without oral contrast. Sagittal and coronal images were reconstructed. Individualized dose optimization techniques were used for this CT. COMPARISON: Comparison is made with prior examination dated September 08, 2023. FINDINGS: The visualized lung bases are unremarkable. Coronary artery calcification There is decreased attenuation of the liver consistent with steatosis. There are surgical clips in the gallbladder fossa consistent with a prior cholecystectomy. Normal spleen. Normal pancreas. There is a small, circumscribed, smooth, low attenuation left adrenal mass, consistent with an adrenal adenoma. This measures 1.4 cm x 1.1 cm. This is unchanged. Normal right adrenal gland. Stable small bilateral parapelvic renal cysts. Normal visualized stomach. Normal small intestine. Normal colon. The appendix is visualized and appears normal. There is scattered atherosclerotic calcification of the abdominal aorta, without a demonstrated aneurysm. Normal inferior vena cava. Normal retroperitoneum. Normal abdominal wall. There are degenerative changes of the visualized lumbar spine. CT/Abdomen WITH IV Contrast IMPRESSION: Stable left adrenal adenoma. Fatty infiltration of the liver. Status post cholecystectomy. Electronically Signed: Charles Zhu MD at 9:36 EST ,
[2024-05-03 13:25] LABS: CREATININE FINGERSTICK < 1.0 mg/dL (0.55-1.02); EGFR FINGERSTICK > 60.0000 mL/min (>60)
== END | disposition home or self-care (01) ==
LOC: CT 12:41
PROVIDERS: PCP Internal Medicine; Referring Provider Internal Medicine; Visit Provider Internal Medicine
DX: D35.02 Benign neoplasm of left adrenal gland (principal)
CPT/HCPCS: 74160; Q9967

== ENCOUNTER → 2024-06-29 | Outpatient (CLI) | payer MEDICARE, OTHER, SELFPAY ==
--- NOTE | 2024-06-29 08:37 | RDU_ITS ---
Reason For Study: CKD stage 3 Right Renal Artery Left Renal Artery Right renal artery ostium Left renal artery ostium 93.5/23.3 111.1/18.9 RSV/EDV. PSV/EDV. Right renal artery proximal Left renal artery proximal PSV/EDV 124.2/23.3 PSV/EDV. 84.7/16.7 . Right renal artery mid 115/27.3 Left renal artery mid 112/23.9 PSV/EDV. PSV/EDV . Right renal artery distal Left renal artery distal 159.5/30.7 130.2/21.4 PSV/EDV. PSV/EDV. Right RAR 1.39. Left RAR 1.71. Right Renal Parenchyma Left Renal Parenchyma Upper Pole Medula 44.6/10.2 Left upper pole medulla 40.1/7.2 PSV/EDV. PSV/EDV . Right upper pole medulla EDR 0.2 . Left upper pole medulla EDR 0.2 . Right upper pole medulla R.I. Left upper pole medulla R.I. 0.82 . 0.77 . UP Cortex 23.9/6.7 PSV/EDV. Upper [place] Cortx 20.6/4.7 PSV/EDV. Left upper pole cortex EDR 0.3 . Right upper pole cortex EDR 0.2 . Left upper pole cortex R.I. 0.72 . Right upper pole cortex R.I. 0.77 . Left lower Pole medulla 33.7/7.3 Right lower Pole medulla 38/7.9 PSV/EDV . PSV/EDV . Left lower pole medulla EDR 0.2 . Right lower pole medulla EDR 0.2 . Left lower pole medulla R.I. 0.78 . Right lower pole medulla R.I. Lower Pole Cortx 24.5/4.7 PSV/EDV. 0.79 . Left lower pole cortex EDR 0.2 . Lower Pole Cortex 20.1/5.8 PSV/EDV. Left lower pole cortex R.I. 0.81 . Right lower pole cortex EDR 0.3 . Left Renal Hilar Right lower pole cortex R.I. 0.71 . LT Hilar avg 53.8/12.7 PSV/EDV . Right Renal Hilar Left hilar acceleration time 40 Right Hilar avg 99.3/15 PSV/EDV. m/sec. Right hilar acceleration time 40 Left Renal Dimensions m/sec. Left kidney size 9.63 cm . Right Renal Dimensions Left cortical dimension 1.48 cm . Right kidney size 10.16 cm . Right cortical dimension 1.36 cm . Aorta Proximal abdominal aorta 1.47 x 1.51 cm . Proximal abdominal aorta peak systolic velocity is 93.5 cm/sec . Distal abdominal aorta 1.31 x 1.33 cm . Distal abdominal aorta peak systolic velocity is 102.2 cm/sec . VL/Renal Artery Duplex Ultrasound Interpretation Summary Right renal artery patent with normal velocities and no evidence of stenosis. Left renal artery patent with normal velocities and no evidence of stenosis. Right renal vein patent. Left renal vein patent. Right kidney normal in size. Left kidney normal in size. Ordering Physician: Mansi Hyde Referring Physician: Mansi Hyde Performed By: Mercy Loza RVT
== END | disposition home or self-care (01) ==
LOC: CVS 08:36
PROVIDERS: PCP Internal Medicine; Referring Provider Internal Medicine; Visit Provider Internal Medicine
DX: N18.30 Chronic kidney disease, stage 3 unspecified (principal)
CPT/HCPCS: 93975